=== PATIENT | female | born 1960 | race Caucasian/White ===

== ENCOUNTER → 2020-05-17 17:59 | Outpatient (CLI) | payer OTHER, SELFPAY | PROVIDERS: PCP Family Medicine; Referring Provider Family Medicine; Visit Provider Family Medicine | DX: Z20.828 Contact with and (suspected) exposure to other viral communicable diseases (principal) | CPT/HCPCS: 87635; C9803; U0003 ==

== ENCOUNTER → 2021-05-26 13:37 | Outpatient (CLI) | payer BC, SELFPAY ==
--- NOTE | 2021-05-26 13:41 | VDLE_ITS ---
Reason For Study: PAIN RIGHT LEFT CFV is compressible, spontaneous, phasic, GSV is normal. competent and demonstrates normal CFV is compressible, spontaneous, phasic, augmentation. competent, and demonstrates normal augmentation. FV is compressible, spontaneous, phasic, competent and demonstrates normal augmentation. POP V is compressible, spontaneous, phasic, competent and demonstrates normal augmentation. T/P Trunk is compressible. PTV is compressible. LT PerV is compressible. There is a hypoechoic nonvascularized structure noted behind left knee measuring 2.33 x .72 cm and extends into mid posterior calf. VL/Venous Duplex US, Unilateral Interpretation Summary There is no evidence of left lower extremity deep vein thrombosis. Left great s aphenous vein appears patent and compressible segmentally. Non-vascular 2.33 x 0.72cm left popliteal space structure; clinical correlation would be appropriate Normal flow patterns right common femoral vein Ordering Physician: Rahul Santiago Referring Physician: SANDIE MOTLEY Performed By: Monserrat Greco, NILS, RVT
== END ==
PROVIDERS: PCP Family Medicine; Referring Provider Physician Assistant; Visit Provider Physician Assistant
DX: M79.662 Pain in left lower leg (principal); M25.562 Pain in left knee
CPT/HCPCS: 93971

== ENCOUNTER 2021-05-29 10:50 | Emergency (ER) | payer BC, SELFPAY ==
[2021-05-29 10:52] VITALS: BP 149/75; PULSE 75; RESP 16; TEMP 36.6; O2SAT 99; BMI 24.0
--- NOTE | 2021-05-29 11:15 | ED.VIS.LOWEX ---
HPI History of Present Illness Chief Complaint: Lower Extremity Injury Informant: patient Onset/Context/Timing Current Severity: Moderate Maximum Severity: Severe Worsened by: Walking, movement left lower extremity Relieved by: Remaining still Associated Symptoms Associated Symptoms: Negative for Parasthesia, Weakness and Loss of Funtion Narrative Narrative: Patient states she injured her knee months ago, she saw orthopedics Dr. Sharp and she has an MRI coming up here within the next week. 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 This is been progressively getting worse. She has been icing it but more than that she has been applying heat. She did that yesterday, now the pain is fairly severe and she is having a lot of trouble walking on it due to pain in the calf. [facility] Medical History (Updated 05/29/21 @ 11:[address] Meir Caban MD) HTN (hypertension) Home Medications hydrochlorothiazide 25 mg PO DAILY #30 tablet 08/03/16 [Rx Last Taken Unknown] hydrocodone-acetaminophen 1 tab PO Q4H PRN PRN 2 Days #10 tablet 05/29/21 [Rx Last Taken Unknown] Allergy/AdvReac Type Severity Reaction Status Date / Time milk AdvReac Upset Verified 05/29/21 10:51 Stomach Social History Smoking Status: Never smoker ROS ROS ED Constitutional Constitutional ED: Denies chills or fever(s) Musculoskeletal Musculoskeletal: Reports extremity pain; Denies neck pain Integumentary Denies Abrasions, rash or wounds Neurologic Neurologic: Denies paresthesias or weakness EXAM Physical Exam Const Vital Signs: 05/29/21 10:52 Temperature 97.9 F Temperature Source Temporal Pulse Rate 75 Respiratory Rate 16 Blood Pressure 149/75 H Blood Pressure Mean 99 Pulse Ox 99 Oxygen Delivery Method Room Air Positive well nourished and well developed General Appearance ED: well developed and NAD Neck full ROM and supple Back/Spine normal ROM and normal to inspection Extremity Extremity Narrative: Mild effusion of left knee without tenderness. Aging yellowing ecchymoses mid left moise, and bilaterally about the left ankle and foot, layering toward the plantar aspect without tenderness there. Significant calf tenderness throughout, with mild ecchymosis throughout, all compartments are soft and nondistended. There is edema throughout the left lower leg. The soleus is nontender. Bounding 2+/4 dorsalis pedis pulse. Normal sensation. Pain with both dorsiflexion and plantarflexion of the foot the patient is able to do both. No palpable cords. No bony tenderness. Neuro oriented x3, no focal motor deficits and no sensory deficits noted Sensorium / Orientation: alert Psych mental status grossly normal and thought process normal Skin no wounds Skin Narrative: Diffuse ecchymosis scattered around the left lower extremity see above. Rashes: no rashes MDM MDM MDM Narrative Medical decision making narrative: This patient has significant bruising, much of it is older about a week or so, given the history and appearance of the yellowing of the bruising, she said she went to her orthopod just the day before yesterday, she had an outpatient ultrasound venous Doppler that was negative for DVT. Given this, I can reassure her I think this is all due to the bruising that she has, traveling down her leg. The heat she was applying probably increase the swelling and could have made the bruising/bleeding worse, and could explain the worsening pain. Clinically she does not have compartment syndrome right now and I do not think she needs them Santiago measured. I would recommend crutches to help take the weight off, I seen and not applying heat, and pain medication she is amenable to this plan and following up with orthopedics. Discharge Plan Triage Chief Complaint: Lower Extremity Injury ED Provider: Meir Caban Dx/Rx/DC Orders Clinical Impression: Pain of left calf, Traumatic ecchymosis of multiple sites of left lower extremity Instructions: ED Contusion, Lower Extremity Prescriptions: New hydrocodone-acetaminophen [hydrocodone-acetaminophen] 1 TABLET tablet 1 tab PO Q4H PRN PRN (Reason: Pain) 2 Days Qty: 10 RF: 0 No Action hydrochlorothiazide 25 MG tablet 25 mg PO DAILY Qty: 30 RF: 0 Primary Care Provider: Erasmo Butler Referrals: Erasmo Butler MD [Primary Care Provider] - Cristhian Galvin DO [STAFF PHYSICIAN] - 3-5 Days if not improving Activity Restrictions/Additional Instructions: Keep moving your foot, but try to avoid bearing weight for now until you are having improvement in pain and swelling. Ice, do not apply heat. Use pain medicine as needed. Occasional ibuprofen should be okay if needed to add to the prescription. Disposition Disposition: Home, Self Care
[2021-05-29] MEDS: HYDROcodone Bitartrate/Apap 5/325 Tablet PO (11:29)
[2021-05-29 11:45] VITALS: PULSE 72; RESP 17; O2SAT 99
== END 2021-05-29 11:50 | disposition home or self-care (01) ==
PROVIDERS: Emergency Provider Emergency Medicine; PCP Family Medicine
DX: S80.12XA Contusion of left lower leg, initial encounter (principal); S90.02XA Contusion of left ankle, initial encounter; S90.32XA Contusion of left foot, initial encounter; W19.XXXA Unspecified fall, initial encounter; Y93.9 Activity, unspecified; Y92.219 Unspecified school as the place of occurrence of the external cause; Y99.0 Civilian activity done for income or pay; I10 Essential (primary) hypertension; Z79.899 Other long term (current) drug therapy
CPT/HCPCS: 99284

== ENCOUNTER 2021-06-22 10:33 | Outpatient (CLI) | payer BC, SELFPAY ==
[2021-06-22] MEDS: 0.9% Saline Lock 10 ML Syringe IV (11:07)
[2021-06-22 11:10] VITALS: BP 125/79; PULSE 75; RESP 16; TEMP 36.8; O2SAT 98; BMI 22.4
[2021-06-22 11:45] VITALS: BP 118/71; PULSE 66; RESP 16; TEMP 37.4; O2SAT 99
[2021-06-22 12:45] VITALS: BP 126/72; PULSE 65; RESP 16; TEMP 37.6; O2SAT 99
== END 2021-06-22 12:45 | disposition home or self-care (01) ==
LOC: MS3OUT 10:33 → MS3 10:34
PROVIDERS: PCP Family Medicine; Referring Provider Nurse Practitioner Adult Health; Visit Provider Nurse Practitioner Adult Health
DX: Z23 Encounter for immunization (principal); U07.1 COVID-19
CPT/HCPCS: J7050; M0245; Q0245; A4216